=== PATIENT | female | born 1995 | race Caucasian/White ===

== ENCOUNTER 2016-08-15 02:24 | Emergency (ER) | payer OTHER ==
[~2016-08-15] VITALS: Ht 157.5 cm; Wt 122.5 kg
[2016-08-15 02:25] VITALS: BP 148/84; PULSE 92; RESP 18; TEMP 98.4; O2SAT 96
[2016-08-15 02:40] VITALS: BP 134/72; PULSE 85; RESP 18; TEMP 98.4; O2SAT 96
== END 2016-08-15 02:40 ==
LOC: SED 02:24
DX: Z02.89 Encounter for other administrative examinations (principal)
CPT/HCPCS: 99283